=== PATIENT | male | born 1945 | race Caucasian/White ===

== ENCOUNTER 2018-12-25 17:14 | Emergency (ER) | payer MEDICARE, OTHER ==
[~2018-12-25] VITALS: Ht 182.9 cm; Wt 71.7 kg
[2018-12-25 17:36] VITALS: BP 128/67
--- NOTE | 2018-12-25 18:12 | NUR ---
PER MD DR FLOR OK TO REMOVE LEFT UPPER ARM PICC LINE.
--- NOTE | 2018-12-25 18:13 | NUR ---
LEFT UPPER ARM PICC LINE REMOVE, CATH INTACT AND PATIENT REMAINS STABLE
== END 2018-12-25 18:21 | disposition home or self-care (01) ==
LOC: ER 17:25
DX: Z45.2 Encounter for adjustment and management of vascular access device (principal); Z85.6 Personal history of leukemia

== ENCOUNTER 2018-12-28 15:05 | Outpatient (CLI) | payer MEDICARE, OTHER | END 2018-12-28 23:59 | disposition home or self-care (01) | LOC: LAB 15:05 | PROVIDERS: ATTEND Internal Medicine Hematology & Oncology | PROC: 05HY33Z Insertion of Infusion Device into Upper Vein, Percutaneous Approach (ICD-10-PCS; principal; 2018-12-28) | DX: T82.898A Other specified complication of vascular prosthetic devices, implants and grafts, initial encounter (principal); C92.00 Acute myeloblastic leukemia, not having achieved remission; Y83.8 Other surgical procedures as the cause of abnormal reaction of the patient, or of later complication, without mention of misadventure at the time of the procedure; Y92.89 Other specified places as the place of occurrence of the external cause | CPT/HCPCS: 36569; C1751 ==

== ENCOUNTER 2019-03-19 10:12 | Outpatient (CLI) | payer MEDICARE, MEDICAID | END 2019-03-19 23:59 | disposition home or self-care (01) | LOC: WOU 10:12 | PROVIDERS: ATTEND Internal Medicine Hematology & Oncology | DX: C95.00 Acute leukemia of unspecified cell type not having achieved remission (principal) | CPT/HCPCS: 36569; C1751 ==

== ENCOUNTER 2019-07-16 10:06 | Outpatient (CLI) | payer MEDICARE, MEDICAID | END 2019-07-16 23:59 | disposition home or self-care (01) | LOC: WOU 10:06 | PROVIDERS: ATTEND Internal Medicine Hematology & Oncology | DX: Z45.2 Encounter for adjustment and management of vascular access device (principal); C92.00 Acute myeloblastic leukemia, not having achieved remission | CPT/HCPCS: 36569; C1751 ==

== ENCOUNTER 2019-09-17 10:47 | Outpatient (CLI) | payer MEDICARE, MEDICAID | END 2019-09-17 23:59 | disposition home or self-care (01) | LOC: ER 10:47 | PROVIDERS: ATTEND Internal Medicine Hematology & Oncology | DX: Z45.2 Encounter for adjustment and management of vascular access device (principal) | CPT/HCPCS: 36569; C1751 ==